=== PATIENT | male | born 1970 ===

== ENCOUNTER 2017-11-05 13:56 | Outpatient (CLI) | payer OTHER | END 2017-11-05 13:58 | disposition home or self-care (01) | LOC: LAB 13:56 | DX: R97.20 Elevated prostate specific antigen [PSA] (principal) ==

== ENCOUNTER 2017-11-20 08:16 | Outpatient (CLI) | payer OTHER | END 2017-11-20 08:30 | disposition home or self-care (01) | LOC: SONOGRAMA 08:16 | DX: R97.20 Elevated prostate specific antigen [PSA] (principal) ==

== ENCOUNTER 2018-09-01 06:09 | Day surgery (SDC) | payer OTHER ==
[~2018-09-01] VITALS: Ht 175.3 cm; Wt 90.7 kg
[2018-09-01] MEDS ORDERED: COZAAR50 MG (06:48)
[2018-09-01] MEDS ORDERED: RECTICARE30 GM TOP (12:29)
[2018-09-01] MEDS ORDERED: PERCOCET 5-3251 EACH PO (12:29)
== END 2018-09-01 18:00 | disposition home or self-care (01) ==
LOC: ER 06:09 → CIR.AMB 08:31
DX: K64.5 Perianal venous thrombosis (principal); K64.4 Residual hemorrhoidal skin tags

== ENCOUNTER 2018-09-02 01:16 | Emergency (ER) | payer OTHER ==
[~2018-09-02] VITALS: Ht 175.3 cm; Wt 90.7 kg
[~2018-09-02 01:16] MED LIST: COZAAR50 MG; PERCOCET 5-3251 EACH PO; RECTICARE30 GM TOP
== END 2018-09-02 08:41 | disposition home or self-care (01) ==
LOC: ER 01:16
DX: R33.8 Other retention of urine (principal)

== ENCOUNTER 2025-03-31 07:58 | Outpatient (CLI) | payer OTHER | END 2025-03-31 08:09 | disposition home or self-care (01) | LOC: TOM 07:58 | PROVIDERS: ATTEND Internal Medicine Nephrology | DX: R10.9 Unspecified abdominal pain (principal); R05.9 Cough, unspecified ==